=== PATIENT | male | born 1930 | race Caucasian/White ===

== ENCOUNTER 2017-10-19 11:02 | Inpatient (IN) | payer OTHER ==
[~2017-10-19] VITALS: Ht 182.9 cm; Wt 58.1 kg
[~2017-10-19 11:02] MED LIST: ACCUNEB SO1.25 MG/1; ACETAMINOPHEN; ACETAMINOPHEN-1 EAC1 PO; ACETAMINOPHEN325 M1 PO; ALEVE220 M1 PO; AMOXICILLIN875 MG PO; AMPICILLIN TRI500 MG PO; ANTIFUNGAL15 G1 TP; ANUSOL-HC25 MG RECTAL; APAP500 PO; APAP650 PO; ARICEPT 5 MG TAB5 MG PO; AUGMENTIN 875-1 EACH PO; AUGMENTIN 875875 MG PO; AZELASTINE NASAL; AZELASTINE137 MCG/0. NASAL; AZITHROMYCIN 2250 MG PO; AZO95 MG PO; BACTRIM DS TAB1 EAC1 PO; BACTRIM DS TAB1 EACH PO; BENADRYL25 MG PO; BETAPACE80 MG PO; CARAFATE 1 GM TA1 G1 PO; CARBAMIDE PEROX15 ML OT; CARBAMOXIDE15 ML OT; CEFUROXIME250 MG PO; CENTRUM SILVER1 EAC4 PO; CIPRO250 M1 PO; CIPRO250 M2 PO; CIPRO500 M1 PO; CIPRO500 MG PO; CIPROFLOXACIN500 M1 PO; CIPROFLOXACIN500 M3; CITRATE OF MAG296 ML PO; CLARITIN10 M2 PO; CLARITIN10 MG PO; CLOTRIMAZOLE 1%15 G1 TOP; COLACE100 MG PO; CYCLOBENZAPRINE10 MG PO; DUONEB 2.5-0.5 M3 ML INH; EAR DROPS15 ML OPHTHALMIC; EUCERIN CREME120 GM TRANSDERM; FLAGYL500 MG PO; FLEXERIL PO; FLOMAX0.4 MG PO; FLONASE 0.05%50 MCG NASAL; FLUCONAZOLE 10100 MG PO; FORTAZ1 GM IV; GABAPENTIN 100100 MG PO; GABAPENTIN100 MG PO; HYDROCHLOROTHIA25 M1 PO; HYDROCHLOROTHIA25 M2 PO; HYDROCODON-ACE1 EACH PO; HYDROXYZINE HCL50 MG PO; HYOSCYAMINE0.375 M1 PO; HYOSCYAMINE0.375 MG PO; IBUPROFEN 400400 M2 PO; K-DUR 20 MEQ T20 MEQ PO; KEFLEX500 M1 PO; KEFLEX500 MG PO; KEPPRA 500 MG500 M1 PO; KEPPRA750 MG PO; LEVAQUIN 500 M500 M2 PO; LEVAQUIN 500 M500 MG PO; LEVAQUIN 750 M750 MG PO; LEVSIN0.125 MG PO; LIDODERM 5%1 PATC1 TRANSDERM; MAALOX ADVANCE355 M1 PO; MACROBID 100 M100 M2 PO; MECLIZINE HCL25 M1 PO; MEDROLDOSEPACK PO; MERREM1 GM IVPB; METAMUCIL PAC1 UDPKT PO; METAMUCIL PACK3.4 GM PO; MILK OF MA2400 MG/10 PO; MIRALAX17 GM PO; MONOCAPS TABLE1 EACH PO; MOTION RELIEF25 MG PO; MULTI-VITAMIN1 EAC5 PO; NAPROSYN250 MG PO; NASONEX IH; NASONEX17 GM; NASONEX17 GM PO; NORCO 10-325 T1 EACH PO; NORCO 5-325 TA1 EACH PO; ONDANSETRON HCL4 M2 PO; ONDANSETRON ODT4 MG PO; OSCIMIN0.125 MG PO; PACERONE 200 M200 M1 PO; PAIN RELIEVER500 M3 PO; PENICILLIN; PEPCID20 MG PO; PERCOCET PO; PHENAZOPYRIDIN200 M2 PO; PLAVIX 75 MG TA75 M1 PO; PREDNISONE 20 M20 M1 PO; PREDNISONE 20 M20 MG PO; PROBIOTIC1 EAC1 PO; PROSCAR 5MG TABL5 M1 PO; PROTONIX40 M1 PO; PROTONIX40 M2 PO; SAVAYSA60 MG PO; SODIUM CHLORID100 M4 IV; SORINE 80 MG TA80 M1 PO; TAMSULOSIN HCL0.4 M1 PO; TAMSULOSIN HCL0.4 MG PO; TESSALON PERLE100 M1 PO; TRAMADOL 50 MG50 MG PO; TYLENOL ARTHRI650 MG PO; TYLENOL325 MG PO; VANCOMYCIN1.25 GM/21 IV; VISTARIL 25 MG25 M1 PO; VISTARIL50 MG PO; VITAMIN D1000 UNI1 PO; VITAMIN D1000 UNIT PO; ZANTAC 150MG T150 M1 PO; ZANTAC 150MG T150 MG PO; ZPAK PO; ZYVOX600 MG PO
[2017-10-19 11:03] VITALS: BP 125/69
[2017-10-19 12:53] LABS: HEMATOCRIT 28.5 % (42.0-52.0); HEMOGLOBIN 9.2 gm/dL (14.0-18.0); MCH 23.1 pg (26.0-34.0); MCHC 32.1 g/dL (28.0-37.0); MPV 7.1 fl. (7.2-11.1); NUCLEATED RBCS 0 /100WBC; PLATELET COUNT* 357 thou/uL (150-400); RBC 3.96 mil/uL (4.50-6.00); RDW-CV 18.9 % (10.5-14.5); WBC 7.7 thou/uL (4.0-11.0)
[2017-10-19 12:56] LABS: CALCIUM 9.4 mg/dL (8.5-10.1); CREATININE 1.2 mg/dL (0.6-1.3); POTASSIUM 4.1 mmol/L (3.5-5.1)
[2017-10-19 12:59] LABS: URINE BILIRUBIN NEGATIVE (Negative); URINE BLOOD 3+ (Negative); URINE CLARITY CLEAR; URINE COLOR YELLOW; URINE GLUCOSE-RANDOM NEGATIVE (Negative); URINE KETONES NEGATIVE (Negative); URINE PROTEIN 1+ (Negative); URINE SPECIFIC GRAVITY 1.015 (1.005-1.030); URINE UROBILINOGEN 0.2 E.U./dl (0.2-1.0)
[2017-10-19 13:00] LABS: URINE LEUKOCYTES-REFLEX 3+ (Negative); URINE NITRITE-REFLEX POSITIVE (Negative)
[2017-10-19 13:09] LABS: ALBUMIN 3.3 g/dL (3.4-5.0); TOTAL BILIRUBIN 0.2 mg/dL (<0.1-1.0); TOTAL PROTEIN 7.7 g/dL (6.4-8.2)
[2017-10-19 13:18] LABS: ABSOLUTE EOSINOPHILS 0.2 thou/uL (0.0-0.7); ABSOLUTE LYMPHOCYTES 0.5 thou/uL (0.8-5.3); ABSOLUTE MONOCYTES 0.5 thou/uL (0.0-1.2); ABSOLUTE NEUTROPHILS 6.5 thou/uL (1.6-8.1); ANISOCYTOSIS 1+; HYPOCHROMASIA 1+; MICROCYTES 1+; PLATELET ESTIMATE ADEQUATE
[2017-10-19 13:20] LABS: BACTERIA-REFLEX >30 Many /HPF (None Seen); CASTS None Seen /LPF (None Seen); CRYSTALS None Seen /LPF (None Seen); SQUAMOUS 0-3 Few /LPF (0-3); URINE WBC-REFLEX >25 Many /HPF (0-5); WBC CLUMPS Moderate (None Seen)
[2017-10-19 15:50] LABS: BE 0.4 mmol/L (-2 to +3); HCO3 24.4 mmol/L (22.0-26.0); PCO2 36.6 mmHg (35.0-45.0); PO2 148.9 mmHg (75.0-100.0); pH 7.442 (7.340-7.450)
[2017-10-19 17:33] VITALS: BP 119/62
--- NOTE | 2017-10-19 18:30 | NUR ---
VSS, ASSUMED CARE OF PT FROM ER AT 1810. PT IS ON 3L NC AND WEARS, 2-3 AT HOME. PT IS TRACING SR ON THE MONITOR, STATES PAIN IN LLQ ANS HAS A EDUARDO IN PLACE AND IS DRAINING, PT IS A&O4 AND UP WITH ONR TO BSC, PT SKIN IS INTACT, PT HAS CALL LIGHT IN REACH AND FALL PRECAUTIONS IN PLACE, WILL FOLLOW WITH PLAN OF CARE.
[2017-10-19 18:40] VITALS: BP 120/72
[2017-10-19 20:14] VITALS: BP 127/74
[2017-10-20] VITALS: BP 154/77
[2017-10-20 04:00] VITALS: BP 148/87
--- NOTE | 2017-10-20 07:03 | NUR ---
PT IS ABLE TO COMMUNICATE HIS NEEDS TO STAFF EFFECTIVELY; HE HAS SOME GARBLED SPEECH, BUT THIS IS HIS BASELINE. HE HAS DENIED THE NEED FOR PAIN MEDICATION UP TO THIS TIME. SUPRAPUBIC CATH IS PATENT; PT INDICATES TO STAFF WHEN IT NEEDS TO BE IRRIGATED.
[2017-10-20 07:30] VITALS: BP 139/79
--- NOTE | 2017-10-20 09:56 | NUR ---
CM ASSESSMENT: Pt is A&O. Resides at home with his son and DIL. Pt is independent with ADLs. Family does cooking, cleaning and driving. Pt uses a walker for mobility. Able to complete own bathing and grooming. Marco Arent with [facility]. Hx of Skilled at [facility] and [facility]. Pt wears home o2. Goal is to return home with [facility]. Following for dc needs.
--- NOTE | 2017-10-20 10:37 | NUR ---
Nutrition: Pt assessed for low BMI. Wt is usually ~130#, which is current wt. BMI 17.7. On usual diet of [place] and [place] thickened. H/o chronic UTI, dementia, anemia, afib. Hx at [facility]. No recent wt changes, no diet changes. Pt appears at low risk. RD will order Boost+ for added nutrition.
[2017-10-20 12:06] LABS: POTASSIUM 3.9 mmol/L (3.5-5.1)
--- NOTE | 2017-10-20 12:47 | NUR ---
I have reviewed the documentation by Maria De Jesus Moreno from 10/20/17 to 10/20/17 and I concur with it. COURTNEY NATARAJAN
[2017-10-20 16:19] VITALS: BP 124/70
--- NOTE | 2017-10-20 17:48 | NUR ---
VSS, ASSUMED CARE IN AM, ASSESSMENT PERFROMED AND CHARTED, FALL PRECAUTIONS IN PLACE AND CALL LIGHT IN REACH. PT IS A&O2-3, FORGETFUL AND HARD TO UNDERSTAND. PT IS ON 2L NC AND TRACING SR ON THE MONITOR, PT STOMACH IS FIRM, LUNGS ARE CLEAR TO DIMM, PT IS UP WITH ONE, STATES PAIN IN LLQ. AT THIS TIME HOURLY ROUNDS COMPLETED, AND NOT STATUS CHANGE AT THIS TIME, SUPERPUBIC CATH IN PLACE AND IS DRAINING.
[2017-10-20 20:00] VITALS: BP 133/77
[2017-10-21] VITALS: BP 138/82
--- NOTE | 2017-10-21 03:12 | NUR ---
PT ALERT ORIENTED TO SELF AND PLACE. PT REMINISCING ABOUT HIS CHILDHOOD. TELEMETRY SHOWS SR. SUPRA PUBIC CATH DRAINING CLEAR YELLOW. WILL CONTINUE TO MONITOR.
[2017-10-21 04:00] VITALS: BP 142/86
[2017-10-21 05:07] LABS: ABSOLUTE EOSINOPHILS 0.1 thou/uL (0.0-0.7); ABSOLUTE LYMPHOCYTES 0.7 thou/uL (0.8-5.3); ABSOLUTE MONOCYTES 0.8 thou/uL (0.0-1.2); ABSOLUTE NEUTROPHILS 5.5 thou/uL (1.6-8.1); BASOPHILS 0.5 %; EOSINOPHILS 1.8 %; HEMATOCRIT 26.9 % (42.0-52.0); HEMOGLOBIN 8.5 gm/dL (14.0-18.0); LYMPHOCYTES 9.7 %; MCH 23.3 pg (26.0-34.0); MCHC 31.8 g/dL (28.0-37.0); MCV 73.2 fL (80.0-100.0); MONOCYTES 10.7 %; MPV 6.9 fl. (7.2-11.1); NUCLEATED RBCS 0 /100WBC; PLATELET COUNT* 289 thou/uL (150-400); POLYS 77.3 %; RBC 3.67 mil/uL (4.50-6.00); RDW-CV 19.4 % (10.5-14.5); WBC 7.1 thou/uL (4.0-11.0)
[2017-10-21 05:26] LABS: CALCIUM 8.9 mg/dL (8.5-10.1); CREATININE 0.9 mg/dL (0.6-1.3); POTASSIUM 4.1 mmol/L (3.5-5.1)
[2017-10-21 09:00] VITALS: BP 137/85
--- NOTE | 2017-10-21 10:03 | NUR ---
ASSUMED CARE OF PT AROUND 0700 THIS AM. REFER TO ASSESSMENT. ANTICIPATE DC HOME WITH HOME HEALTH THIS SHIFT. AWAITING URINE CULTURE SENSITIVITY FOR APPROPRIATE ABT AT DC. VSS. TELE SR. TACHYCARDIA NOTED WHEN PT STANDING ON SIDE OF BED WITH STAFF. DISCUSSED WITH PHYSICIAN. NO OTHER CONCERNS AT THIS TIME. CLWR. WCTM.
[2017-10-21 11:42] VITALS: BP 118/78
[2017-10-21] MEDS ORDERED: IRON325 PO (13:37)
[2017-10-21] MEDS ORDERED: CEFUROXIME250 MG PO (13:37)
[2017-10-21 13:50] VITALS: BP 118/78
--- NOTE | 2017-10-21 14:49 | NUR ---
PT GIVEN DISCHARGE INSTRUCTIONS AND VERBALIZES UNDERSTANDING. PT HAD TWO SCRIPTS SENT TO HIS PHARMACY OF CHOICE AND WAS GIVEN ONE PAPER SCRIPT. PT EDUCATED ON NEW MEDICATIONS. PT GIVEN PRINTED DRUG INFORMATION CONCERNING NEW MEDICATIONS. IV DC'D. PT DC'D WITH CHRONIC EDUARDO. PT DC'D PER W/C WITH NURSING STAFF PER PRIVATE VEHICLE WITH SON AND DAUGHTER IN LAW. NO OTHER CONCERNS AT THIS TIME.
== END 2017-10-21 14:40 | disposition home health service (06) | DRG 871 ==
LOC: M.ERS 11:02 → M.2W 15:50 → M.TBA-ER 15:50 → M.2W 17:44
PROVIDERS: Internal Medicine; Personal Emergency Response Attendant; Physician Assistant; ADMIT Internal Medicine
DX: A41.9 Sepsis, unspecified organism (principal); G93.41 Metabolic encephalopathy; E22.2 Syndrome of inappropriate secretion of antidiuretic hormone; N39.0 Urinary tract infection, site not specified; I25.10 Atherosclerotic heart disease of native coronary artery without angina pectoris; G89.29 Other chronic pain; M54.2 Cervicalgia; M19.90 Unspecified osteoarthritis, unspecified site; K21.9 Gastro-esophageal reflux disease without esophagitis; I50.9 Heart failure, unspecified; R55 Syncope and collapse; F03.90 Unspecified dementia, unspecified severity, without behavioral disturbance, psychotic disturbance, mood disturbance, and anxiety; N47.2 Paraphimosis; I25.2 Old myocardial infarction; Z79.899 Other long term (current) drug therapy; Z88.6 Allergy status to analgesic agent